=== PATIENT | male | born 1980 | race African-American/Black ===

== ENCOUNTER → 2019-06-12 06:53 | Day surgery (SDC) | payer OTHER ==
--- NOTE | 2019-06-12 11:13 | NUR ---
PT. PROCEDURE CANCELLED DUE TO NO COLON PREP PER PATIENT RECORD. DISCHARGED TO LONG TERM GUARDS CARE.
== END | disposition home or self-care (01) ==
LOC: D.OPS 06:53
PROVIDERS: ATTEND Surgery
DX: R19.5 Other fecal abnormalities (principal); Z53.9 Procedure and treatment not carried out, unspecified reason

== ENCOUNTER 2019-08-07 09:48 | Day surgery (SDC) | payer OTHER ==
[~2019-08-07] VITALS: Ht 185.4 cm; Wt 145.5 kg
[2019-08-07] MEDS ORDERED: PEPCID AC20 MG PO (10:17)
[2019-08-07] MEDS ORDERED: HYDROCHLOROTHIA25 MG PO (10:17)
[2019-08-07] MEDS ORDERED: GLUCOPHAGE500 MG PO (10:18)
[2019-08-07] MEDS ORDERED: LOPRESSOR25 MG PO (10:18)
[2019-08-07] MEDS ORDERED: LISINOPRIL40 MG PO (10:18)
[2019-08-07 10:27] VITALS: BP 141/82; Ht 185.4 cm; Wt 145.5 kg
[2019-08-07 11:11] LABS: BASOPHILS 0.3 % (0-2); EOSINOPHILS 1.9 % (0-7); HEMATOCRIT 42.6 % (42.0-54.0); HEMOGLOBIN 14.3 g/dL (13.5-17.5); IMMATURE GRANULOCYTES 0.5 % (0-5); LYMPHOCYTES 23.1 % (15-50); MCH 23.6 pg (26.0-34.0); MCHC 33.6 g/dL (31.0-37.0); MCV 70.3 fL (80.0-100.0); MEAN PLATELET VOLUME 10.4 fL (7.4-10.4); MONOCYTES 8.2 % (2-11); PLATELET COUNT 341 10x3/uL (130-400); RBC 6.06 10x6/uL (4.20-6.10); RDW 15.7 % (11.5-14.5); WBC 12.5 10x3/uL (4.8-10.8)
[2019-08-07 11:15] LABS: ANION GAP 15.8 mmol/L (8-16); CALCIUM 9.1 mg/dL (8.5-10.1); CARBON DIOXIDE 22.6 mmol/L (21.0-32.0); CREATININE - SERUM 1.3 mg/dL (0.6-1.3); POTASSIUM - SERUM 4.4 mmol/L (3.5-5.1)
--- NOTE | 2019-08-07 14:44 | NUR ---
DC INSTRUCTIONS GIVEN TO PT. STATES UNDERSTANDING. DC'D IV CATH FULLY INTACT.
--- NOTE | 2019-08-07 14:47 | NUR ---
PT LEFT UNIT VIA WC AT 1446
--- NOTE | 2019-08-08 10:21 | HP ---
PATIENT: FRANK MACDONALD MEDICAL RECORD: [id number] ACCOUNT: [id number] LOCATION:[facility] : 76 ADMISSION DATE: 08/07/19 PCP: No PCP HISTORY AND PHYSICAL EXAMINATION HISTORY OF PRESENT ILLNESS: The patient is here for endoscopy. I was told that the patient was to undergo a colonoscopy. On the condensed consultation request, it is pretty clear that a colonoscopy and EGD were to be scheduled. The patient has received a bowel prep. He has fecal occult blood positivity times 3. The patient has been anemic. He has had hematemesis as well. He is amenable to undergoing the upper and lower endoscopy today. Under the subjective notes on the condensed consultation request, it states requesting rescheduling of colonoscopy and EGD. The patient states he has never had a colonoscopy and EGD in the past. PAST MEDICAL AND SURGICAL HISTORY: Hemophilia, hypertension, non-insulin dependent diabetes mellitus. REVIEW OF SYSTEMS: Negative for CVA or seizures. Negative for thyroid problems or renal disease. HOME MEDICINES: Please see the nursing list. ALLERGIES: No known drug allergies. PHYSICAL EXAMINATION: GENERAL: The patient does not appear acutely ill. He does not appear chronically ill. VITAL SIGNS: Reviewed. EARS: External ears appear normal. EYES: Extraocular movements are intact. NECK: Trachea is midline. CHEST: No intercostal retractions. PULMONARY: Nonlabored and no stridor. IMPRESSION: 1. Fecal occult blood positivity. 2. Anemia. 3. Hematemesis. PLAN: EGD and colonoscopy. TRANSINT:[id number] Voice Confirmation ID: [id number] DOCUMENT ID: [id number] cc: Cait Hylton APN [id number] HISTORY AND PHYSICAL [id number] RFANK MACDONALD, FELISA RUEDA at 1021 CC: LUCIA HYLTON APN [id number] DICTATION DATE: 08/07/19 1304 PHYSICAL EDUCATION AIDE: 08/07/19 1350 [facility] 08/07/19 [place] [address]
--- NOTE | 2019-08-08 10:21 | OP ---
PATIENT NAME: FRANK MACDONALD MEDICAL RECORD: [id number] :76 LOCATION:[facility] ADMISSION DATE: SURGEON: FELISA SOLANO MD DATE OF OPERATION: 08/07/2019 PREOPERATIVE DIAGNOSES: 1. Hematemesis. 2. Fecal occult blood positivity times 3. 3. Anemia. 4. Hemophilia. POSTOPERATIVE DIAGNOSES: 1. Hematemesis. 2. Fecal occult blood positivity times 3. 3. Anemia. 4. Hemophilia. 5. Large hiatal hernia. 6. Moderate antral gastritis with erosions and one ulcer. 7. Moderate bulbar duodenitis with erosions. PROCEDURE: 1. Esophagogastroduodenoscopy with antral biopsies to check for H. pylori. 2. Total colonoscopy to cecum. SURGEON: Felisa Solano MD FLOW COORDINATOR: None. BLOOD LOSS: Minimal. ANESTHESIA: IV sedation. COMPLICATIONS: None. The risks, possible complications and alternatives to the procedure were explained to the patient. He elects to proceed. ENDOSCOPIC COURSE: The patient was conveyed to endoscopy suite electively on 08/07/2019. IV sedation was induced by the anesthesia staff. A bite block was inserted. A gastroscope was inserted into the mouth. It was advanced easily into the hypopharynx. The esophagus was easily intubated as were the stomach and duodenum. Upon withdrawal, retroflexed and angulus views were obtained. An antral biopsy was obtained. I went back and grasped the biopsy site and I cauterized it to make it hemostatic as the patient does have hemophilia. The endoscope was then withdrawn under direct vision. The patient was turned 180 degrees and placed in the Boyd position. A digital rectal examination was performed. A colonoscope was inserted through the anus. It was easily advanced to the cecum. The prep was adequate. I slowly withdrew the endoscope. I irrigated and aspirated extensively. A combination of normal imaging and narrow band imaging were utilized. I dragged the folds. The pullback was greater than a 15-minute pullback. A retroflexed view was obtained in the rectum. I then unretroflexed the scope and removed it under direct vision. OPERATIVE REPORT [id number] FRANK MACDONALD The duodenitis and gastritis certainly could account for the fecal occult blood positivity, hematemesis and anemia. The patient is on an H2 roshan. I would recommend switching him to a proton pump inhibitor and also await the biopsies for H. pylori. There is no need for the patient to follow up with me in the office unless he develops complications related to this procedure. TRANSINT:[id number] Voice Confirmation ID: [id number] DOCUMENT ID: [id number] cc: Cait Hylton APN. FELISA SOLANO MD at 1021 CC: CAIT HYLTON APN [id number] DICTATION DATE: 08/07/19 1408 DECK SCALER: 08/07/19 1445 [facility] 08/07/19 [place] [id number] [place] [address]
== END 2019-08-07 14:46 | disposition home or self-care (01) ==
LOC: D.OPS 09:48
PROVIDERS: Anesthesiology; ATTEND Surgery
DX: K92.0 Hematemesis (principal); R19.5 Other fecal abnormalities; D64.9 Anemia, unspecified; D66 Hereditary factor VIII deficiency; K44.9 Diaphragmatic hernia without obstruction or gangrene; K29.60 Other gastritis without bleeding; K29.80 Duodenitis without bleeding; I10 Essential (primary) hypertension; E11.9 Type 2 diabetes mellitus without complications